=== PATIENT | male | born 1985 | race Caucasian/White ===

== ENCOUNTER 2019-01-16 20:51 | Emergency (ER) | payer BC ==
[~2019-01-16] VITALS: Ht 188 cm; Wt 92.4 kg
[~2019-01-16 20:51] MED LIST: ALBU8.5H8 INH; AZIT250T PO; IBUP800T48 PO
[2019-01-16 20:58] VITALS: Ht 188 cm; Wt 92.4 kg
[2019-01-16] MEDS ORDERED: KETOROLAC 15 MG INJ IV STA (21:03)
[2019-01-16] MEDS ORDERED: SODIUM CHLORIDE 0.9% 1L BAG IV* STA (21:03)
[2019-01-16] MEDS ORDERED: ACETAMINOPHEN 325 MG TAB PO ONE (21:30)
[2019-01-16] MEDS ORDERED: CEFTRIAXONE 1 GM/50 ML (PMX) 50 ML IVPB ONE (22:00)
[2019-01-16] MEDS ORDERED: DIPHTH/TET/ACEL PERTUSS (ADULT) 0.5 ML VIAL IM* ONE (23:00)
[2019-01-16 23:18] VITALS: BP 135/88; PULSE 92; RESP 14
== END 2019-01-16 23:19 | disposition home or self-care (01) ==
LOC: E/R 20:51
DX: S71.111A Laceration without foreign body, right thigh, initial encounter (principal); J18.1 Lobar pneumonia, unspecified organism; R50.9 Fever, unspecified; W26.8XXA Contact with other sharp object(s), not elsewhere classified, initial encounter; Y92.9 Unspecified place or not applicable; Z23 Encounter for immunization
CPT/HCPCS: 12002; 36415; 71045; 80053; 81003; 83605; 84484; 85025; 85610; 85730; 87040; 87086; 90471; 90715; 93005; 96374; 96375; 99285; J0696; J1885; J7030